=== PATIENT | male | born 1945 | race Caucasian/White ===

== ENCOUNTER 2023-03-25 12:53 | Outpatient (CLI) | payer MEDICARE, OTHER, SELFPAY | END 2023-03-25 12:54 | disposition home or self-care (01) | LOC: CHSLAB 13:07 | PROVIDERS: PCP Specialist; Visit Provider Specialist | DX: L98.8 Other specified disorders of the skin and subcutaneous tissue (principal) | CPT/HCPCS: 88304; 88305 ==

== ENCOUNTER 2023-11-11 09:03 | Outpatient (CLI) | payer MEDICARE, OTHER, SELFPAY | END 2023-11-11 09:04 | disposition home or self-care (01) | LOC: CHSLAB 09:12 | PROVIDERS: PCP Specialist; Visit Provider Specialist | DX: C44.222 Squamous cell carcinoma of skin of right ear and external auricular canal (principal) | CPT/HCPCS: 88305 ==